=== PATIENT | male | born 1955 | race Caucasian/White ===

== ENCOUNTER → 2019-10-24 10:17 | Outpatient (BNVA) | payer MEDICARE, OTHER, SELFPAY | PROVIDERS: Family Provider Registered Nurse; PCP Registered Nurse; Visit Provider Registered Nurse | DX: Z00.00 Encounter for general adult medical examination without abnormal findings (principal); N40.0 Benign prostatic hyperplasia without lower urinary tract symptoms; E78.5 Hyperlipidemia, unspecified | CPT/HCPCS: 80053; 80061; 81000; 84153; 85025 ==

== ENCOUNTER 2021-10-30 14:42 | Outpatient (CLI) | payer MEDICARE, OTHER, SELFPAY ==
--- NOTE | 2021-10-30 14:52 | MR_ITS ---
WS: [id number] MRI LUMBAR SPINE NONCONTRAST TECHNIQUE: Sagittal T1, T2 and STIR imaging. Axial T1 and T2 imaging. CLINICAL INFORMATION: LUMBAR SPINAL STENOSIS COMPARISON: MRI April 26, 2018 FINDINGS: Mild lumbar curve. No acute compression. Slight anterolisthesis L4 on L5. No acute compression fractu res. L1-L2: Normal. L2-L3: Tiny LEFT foraminal protrusion with mild LEFT foraminal narrowing. Mild facet arthropathy. Spi nal canal is patent. L3-L4: Mild annular bulging. Mild facet arthropathy. Mild bilateral foraminal narrowing. L4-L5: Slight anterolisthesis L4 on L5. Disc bulging in combination with facet arthropathy and ligame ntum flavum hypertrophy impinges the traversing L5 nerve roots bilaterally with moderate central nancy l stenosis progressed compared to the prior exams. Mild RIGHT foraminal narrowing. L5-S1: Mild disc bulging with osteophytic ridging eccentric to the LEFT. Far LEFT foraminal protrusio n impinges the far exiting LEFT L5 nerve root laterally. Recommend correlation with L5 nerve root sym ptoms. This is similar to the prior exams RIGHT foramen is patent. Spinal canal is patent. Mild facet arthropathy. Mild central canal stenosis in the cervical spine with small protrusions in the [employer] imaging at C3-C 4 C5-C6 and C6-C7. Small protrusions in the upper thoracic spine at T2-T3. Visualized pelvic bony structures: Normal. Paravertebral soft tissues: Normal. MR/MR lumbar spine wo con* [id number] IMPRESSION: 1. Mild lumbar curve. No acute compression. Slight anterolisthesis L4 on L5. 2. Moderate central canal stenosis L4-L5 with impingement traversing L5 nerve roots bilaterally. This is progressed compared to the prior examinations. 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 3. Mild RIGHT foraminal narrowing with contact of the exiting RIGHT L4 nerve r oot. 4. LEFT eccentric disc osteophyte complex L5-S1 Impinges the far exiting LEFT L5 nerve root laterally. Recommend correlation for LEFT L5 nerve root symptoms. This appears stable compared to prior exams 5. Small LEFT foraminal protrusion L2-L3 with mild LEFT foraminal narrowing. M ild bilateral L3-L4 foraminal narrowing. 6. Moderate facet arthropathy L3-L4. Advanced facet arthropathy L4-L5. 7. Small central disc protrusions in the cervical spine with mild central nancy l stenosis at C3-C4 C5-C6 and C6-C7. This can be followed up with cervical spin e MRI.
== END 2021-10-30 14:43 | disposition home or self-care (01) ==
LOC: RAD 14:47
PROVIDERS: PCP Student in an Organized Health Care Education/Training Program; Visit Provider Anesthesiology Pain Medicine
DX: M48.062 Spinal stenosis, lumbar region with neurogenic claudication (principal)
CPT/HCPCS: 72148

== ENCOUNTER 2021-11-04 10:26 | Outpatient (CLI) | payer MEDICARE, OTHER, SELFPAY ==
--- NOTE | 2021-11-04 11:00 | XR_ITS ---
WS: [id number] Exam: XR lumbar spine f/e only [id number] Date/Time of Exam: 11/04/2021 11:06 AM Reason For Exam: VERTEBROGENIC LOW BACK PAIN No acute fracture or dislocation. Degenerative anterolisthesis of L4 on L5 with about 7 mm forward mo vement of L4. Minimal degenerative retrolisthesis of L3 on L4 and L2 on L3. 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 Degenerative vacuum disc at L5-S1. Mild spondylosis. No significant change in flexion or extension. XR/XR lumbar spine f/e only [id number] IMPRESSION: 1. Degenerative anterolisthesis of L4 on L5 with about 7 mm forward movement of L4. No significant change in flexion or extension. 2. Degenerative changes and mild spondylosis.
== END 2021-11-04 10:27 | disposition home or self-care (01) ==
PROVIDERS: PCP Student in an Organized Health Care Education/Training Program; Visit Provider Anesthesiology Pain Medicine
DX: M54.50 Low back pain, unspecified (principal); M47.896 Other spondylosis, lumbar region
CPT/HCPCS: 72120

== ENCOUNTER 2024-03-10 10:33 | Outpatient (RCR) | payer OTHER, SELFPAY | END 2024-03-16 23:59 | disposition home or self-care (01) | LOC: SPT 10:33 | PROVIDERS: Visit Provider Orthopaedic Surgery | DX: Z98.890 Other specified postprocedural states (principal) | CPT/HCPCS: 97110; 97140; 97161 ==

== ENCOUNTER 2024-03-17 06:00 | Outpatient (RCR) | payer OTHER, SELFPAY | END 2024-04-15 23:59 | disposition home or self-care (01) | LOC: SPT 06:00 | PROVIDERS: Visit Provider Orthopaedic Surgery | DX: Z98.890 Other specified postprocedural states (principal) | CPT/HCPCS: 97110; 97140 ==